=== PATIENT | female | born 1955 | race Caucasian/White ===

== ENCOUNTER → 2017-05-26 | Outpatient (CLI) | payer BC ==
[~2017-05-26] MED LIST: ALBU17IN INH; CALC600T57 PO; CALCCHW8 PO; ENTOCORT PO; ESCI20TA PO; LISI10TA4 PO; MULT1TAB9 PO; POTA10CA32 PO; SING10TA32 PO; VITA500T PO
[2017-05-26 16:35] LABS: BASO % 0.8 % (0.0-1.0); EOS # 0.1 K/mm3 (0.0-0.50); EOS % 2.4 % (0.0-3.0); LARGE UNSTAINED CELL # 0.1 K/mm3 (0.0-0.4); LARGE UNSTAINED CELL % 2.3 % (0.0-4.0); LYMPH # 1.3 K/mm3 (1.5-4.5); LYMPH % 23.4 % (24.0-44.0); MEAN CORPUSCULAR HEMOGLOBIN 32.5 pg (27.0-33.0); MEAN CORPUSCULAR HGB CONC 34.6 g/dl (32.0-36.5); MEAN CORPUSCULAR VOLUME 93.8 fl (80.0-96.0); MONO # 0.4 K/mm3 (0.0-0.8); NEUTROPHILS # 3.3 K/mm3 (1.8-7.7); NEUTROPHILS % 63.1 % (36.0-66.0); PLATELET COUNT, AUTOMATED 174 k/mm3 (150-450); RED CELL DISTRIBUTION WIDTH 13.2 % (11.5-14.5); WHITE BLOOD COUNT 5.2 K/mm3 (4.0-10.0)
[2017-05-26 16:46] LABS: ALBUMIN 3.7 GM/DL (3.2-5.2); ALBUMIN/GLOBULIN RATIO 0.97 (1.00-1.93); ALKALINE PHOSPHATASE 78 U/L (45-117); ALT/SGPT 28 U/L (12-78); AMYLASE 43 U/L (25-115); ANION GAP 8 MEQ/L (8-16); AST/SGOT 16 U/L (15-37); BILIRUBIN,TOTAL 0.5 MG/DL (0.2-1.0); BLOOD UREA NITROGEN 14 MG/DL (7-18); CALCIUM LEVEL 9.8 MG/DL (8.8-10.2); CARBON DIOXIDE LEVEL 31 MEQ/L (21-32); CHLORIDE LEVEL 105 MEQ/L (98-107); CREATININE FOR GFR 0.89 MG/DL (0.55-1.02); GLOMERULAR FILTRATION RATE > 60.0 (>45); GLUCOSE, FASTING 153 MG/DL (80-110); POTASSIUM SERUM 3.3 MEQ/L (3.5-5.1); SODIUM LEVEL 144 MEQ/L (136-145); TOTAL PROTEIN 7.5 GM/DL (6.4-8.2)
[2017-05-26 17:08] LABS: ERYTHROCYTE SEDIMENTATION RATE 44 mm/hr (0-30)
== END ==
LOC: M LAB 15:27
PROVIDERS: ATTEND Physician Assistant Medical
DX: K62.5 Hemorrhage of anus and rectum (principal)

== ENCOUNTER 2017-06-18 09:33 | Outpatient (CLI) | payer BC ==
[~2017-06-18] VITALS: Ht 165.1 cm; Wt 73.0 kg
[2017-06-18] MEDS ORDERED: NS 1,000 ML IV ONE (10:00)
[2017-06-18] MEDS ORDERED: PROPOFOL 200 MG/20 ML VIAL As Ordered ONE ×2 (10:51→10:57)
[2017-06-18] MEDS ORDERED: LIDOCAINE 2% INJ 100 MG/5 ML SDV (FOR ANES.) As Ordered ONE (10:51)
--- NOTE | 2017-06-18 11:14 | ROOR ---
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 Procedure: Pre-Anesthesia Assessment: - The heart rate, respiratory rate, oxygen saturations, blood pressure, adequacy of pulmonary ventilation, and response to care were monitored throughout the procedure. The Colonoscope was introduced through the anus and advanced to 6 cm into the ileum. The colonoscopy was performed without difficulty. The patient tolerated the procedure well. The quality of the bowel preparation was good. Findings: The perianal and digital rectal examinations were normal. The terminal ileum appeared normal. A 8 mm polyp was found in the distal sigmoid colon. The polyp was semi-pedunculated. The polyp was removed with a cold snare. Resection and retrieval were complete. For hemostasis, one hemostatic clip was successfully placed (MR conditional). There was no bleeding at the end of the procedure. The exam was otherwise without abnormality. Biopsies were taken with a cold forceps from the ascending colon, transverse colon, descending colon, sigmoid colon and rectum for evaluation of microscopic colitis. These biopsy specimens were sent to Pathology. Impression: - The perianal examination is normal - The examined portion of the ileum was normal. - One 8 mm polyp in the distal sigmoid colon, removed with a cold snare. Resected and retrieved. Clip (MR conditional) was placed. - Small internal hemorrhoids. - The colon examination was otherwise normal. - Biopsies for surveillance were taken from the ascending colon, transverse colon, descending colon, sigmoid colon and rectum. Recommendation: - Continue present medications. - Telephone endoscopist for pathology results in 2 weeks. Wan Low MD Wan LOW MD 06/18/2017 11:14:05 AM This report has been signed electronically. Number of Addenda: 0 Note Initiated On: 06/18/2017 10:40 AM Estimated Blood Loss: Estimated blood loss: none.
[2017-06-18 11:39] VITALS: BP 2/71
== END 2017-06-18 11:41 | disposition home or self-care (01) ==
LOC: M OPP 09:33
PROVIDERS: ATTEND Internal Medicine Gastroenterology
DX: K92.1 Melena (principal); K52.89 Other specified noninfective gastroenteritis and colitis; R19.7 Diarrhea, unspecified; D12.5 Benign neoplasm of sigmoid colon; K64.8 Other hemorrhoids; I10 Essential (primary) hypertension; R12 Heartburn; M19.90 Unspecified osteoarthritis, unspecified site; M54.9 Dorsalgia, unspecified; M85.80 Other specified disorders of bone density and structure, unspecified site; R42 Dizziness and giddiness; Z78.0 Asymptomatic menopausal state; J45.909 Unspecified asthma, uncomplicated; Z85.3 Personal history of malignant neoplasm of breast; Z92.21 Personal history of antineoplastic chemotherapy; Z92.3 Personal history of irradiation; Z80.0 Family history of malignant neoplasm of digestive organs; Z83.71 Family history of colonic polyps; Z80.8 Family history of malignant neoplasm of other organs or systems; Z80.1 Family history of malignant neoplasm of trachea, bronchus and lung; Z90.11 Acquired absence of right breast and nipple; Z88.8 Allergy status to other drugs, medicaments and biological substances; Z88.1 Allergy status to other antibiotic agents; Z88.2 Allergy status to sulfonamides; Z91.048 Other nonmedicinal substance allergy status; Z88.3 Allergy status to other anti-infective agents; Z91.030 Bee allergy status; Z79.899 Other long term (current) drug therapy

== ENCOUNTER → 2018-03-10 | Outpatient (REF) | payer BC | LOC: M LAB REF 11:51 | DX: K52.832 Lymphocytic colitis (principal) | CPT/HCPCS: 87507 ==

== ENCOUNTER → 2018-03-15 | Outpatient (CLI) | payer BC ==
[2018-03-15 13:17] LABS: HEMATOCRIT 38.7 % (36.0-47.0); HEMOGLOBIN 12.4 g/dl (12.0-15.5); MEAN CORPUSCULAR HEMOGLOBIN 31.7 pg (27.0-33.0); PLATELET COUNT, AUTOMATED 173 10^3/uL (150-450); RED BLOOD COUNT 3.91 10^6/uL (4.00-5.40); RED CELL DISTRIBUTION WIDTH 16.6 % (11.5-14.5)
[2018-03-15 13:23] LABS: ADD MANUAL DIFFER YES; DIFF SLIDE NUMBER 159; POS COUNT POS FLAG; POSITIVE MORPH POS FLAG
[2018-03-15 14:08] LABS: BANDS 2 % (< 11); BASOPHILS 1 % (0-4); EOSINOPHILS 2 % (0-5); LYMPHOCYTES 14 % (16-52); METAMYELOCYTES 2 % (0-0); MONOCYTES 2 % (0-8); MYELOCYTES 2 % (0-0); NEUTROPHILS 75 % (35-75); NUCLEATED RED BLOOD CELL 1 % (0-0); PLATELET ESTIMATE NORMAL (NORMAL)
[2018-03-15 14:15] LABS: ALBUMIN 3.2 GM/DL (3.2-5.2); ALBUMIN/GLOBULIN RATIO 0.91 (1.00-1.93); ALKALINE PHOSPHATASE 57 U/L (45-117); ALT/SGPT 29 U/L (12-78); ANION GAP 12 MEQ/L (8-16); AST/SGOT 9 U/L (7-37); BILIRUBIN,TOTAL 0.4 MG/DL (0.2-1.0); BLOOD UREA NITROGEN 21 MG/DL (7-18); CARBON DIOXIDE LEVEL 25 MEQ/L (21-32); CHLORIDE LEVEL 108 MEQ/L (98-107); CHOLESTEROL LEVEL 209 MG/DL (<200); CHOLESTEROL RISK RATIO 3.215 (<5); CREATININE FOR GFR 0.66 MG/DL (0.55-1.30); GLOMERULAR FILTRATION RATE > 60.0 (>45); GLUCOSE, FASTING 84 MG/DL (70-100); HDL CHOLESTEROL 65 MG/DL (>40); LDL CHOLESTEROL 116.6 MG/DL (<100); NON-HDL-C 144 MG/DL; POTASSIUM SERUM 3.8 MEQ/L (3.5-5.1); SODIUM LEVEL 145 MEQ/L (136-145); TOTAL PROTEIN 6.7 GM/DL (6.4-8.2); TRIGLYCERIDES LEVEL 137 MG/DL (<150)
== END ==
LOC: M WUC 08:49
DX: I10 Essential (primary) hypertension (principal); E78.2 Mixed hyperlipidemia
CPT/HCPCS: 80061

== ENCOUNTER → 2018-03-15 | Outpatient (CLI) | payer BC ==
[2018-03-15 13:17] LABS: HEMATOCRIT 38.6 % (36.0-47.0); HEMOGLOBIN 12.4 g/dl (12.0-15.5); MEAN CORPUSCULAR HEMOGLOBIN 31.9 pg (27.0-33.0); MEAN CORPUSCULAR HGB CONC 32.1 g/dl (32.0-36.5); MEAN CORPUSCULAR VOLUME 99.2 fl (80.0-96.0); PLATELET COUNT, AUTOMATED 173 10^3/uL (150-450); RED BLOOD COUNT 3.89 10^6/uL (4.00-5.40); RED CELL DISTRIBUTION WIDTH 16.7 % (11.5-14.5); WHITE BLOOD COUNT 8.2 10^3/uL (4.0-10.0)
[2018-03-15 13:23] LABS: ADD MANUAL DIFFER YES; DIFF SLIDE NUMBER 158; POS COUNT POS FLAG; POSITIVE MORPH POS FLAG
[2018-03-15 13:52] LABS: ALBUMIN 3.2 GM/DL (3.2-5.2); ALBUMIN/GLOBULIN RATIO 0.91 (1.00-1.93); ALKALINE PHOSPHATASE 56 U/L (45-117); ALT/SGPT 27 U/L (12-78); ANION GAP 13 MEQ/L (8-16); AST/SGOT 8 U/L (7-37); BILIRUBIN,TOTAL 0.3 MG/DL (0.2-1.0); BLOOD UREA NITROGEN 22 MG/DL (7-18); CALCIUM LEVEL 9.1 MG/DL (8.8-10.2); CARBON DIOXIDE LEVEL 25 MEQ/L (21-32); CHLORIDE LEVEL 107 MEQ/L (98-107); CREATININE FOR GFR 0.69 MG/DL (0.55-1.30); GLOMERULAR FILTRATION RATE > 60.0 (>45); GLUCOSE, FASTING 84 MG/DL (70-100); POTASSIUM SERUM 3.9 MEQ/L (3.5-5.1); SODIUM LEVEL 145 MEQ/L (136-145); TOTAL PROTEIN 6.7 GM/DL (6.4-8.2)
[2018-03-15 14:10] LABS: BANDS 2 % (< 11); BASOPHILS 1 % (0-4); EOSINOPHILS 2 % (0-5); LYMPHOCYTES 14 % (16-52); METAMYELOCYTES 2 % (0-0); MONOCYTES 2 % (0-8); MYELOCYTES 2 % (0-0); NEUTROPHILS 75 % (35-75); NUCLEATED RED BLOOD CELL 1 % (0-0); PLATELET ESTIMATE NORMAL (NORMAL)
[2018-03-17 00:06] LABS: CYTOMEGALOVIRUS IgM ANTIBODY <30.0 AU/mL (0.0-29.9); HSV IgM TYPES 1&2 <0.91 Ratio (0.00-0.90)
== END ==
LOC: M WUC 08:43
DX: K52.832 Lymphocytic colitis (principal)
CPT/HCPCS: 80053

== ENCOUNTER 2018-03-25 12:49 | Day surgery (SDC) | payer BC ==
[2018-03-25] MEDS: NS 1,000 ML IV (13:00)
[2018-03-25] MEDS ORDERED: PROPOFOL 200 MG/20 ML VIAL As Ordered ×2 (15:00)
[2018-03-25] MEDS ORDERED: SIMETHICONE 40MG/0.6ML DROPS 30ML As Ordered (15:01)
[2018-03-25] MEDS ORDERED: LIDOCAINE 2% INJ 100 MG/5 ML SYRINGE As Ordered (15:02)
[2018-03-25] MEDS ORDERED: GLUCAGON FOR INJ 1 MG VIAL (J1610) As Ordered (15:05)
== END 2018-03-25 15:40 | disposition home or self-care (01) ==
LOC: M OPP 12:49
DX: K52.9 Noninfective gastroenteritis and colitis, unspecified (principal); I10 Essential (primary) hypertension; K21.9 Gastro-esophageal reflux disease without esophagitis; J45.909 Unspecified asthma, uncomplicated; Z79.899 Other long term (current) drug therapy; Z88.8 Allergy status to other drugs, medicaments and biological substances; Z91.048 Other nonmedicinal substance allergy status; Z91.030 Bee allergy status; Z78.0 Asymptomatic menopausal state; Z85.3 Personal history of malignant neoplasm of breast; Z94.84 Stem cells transplant status; Z90.11 Acquired absence of right breast and nipple; Z92.3 Personal history of irradiation; Z92.21 Personal history of antineoplastic chemotherapy; Z80.1 Family history of malignant neoplasm of trachea, bronchus and lung; Z80.0 Family history of malignant neoplasm of digestive organs; Z80.8 Family history of malignant neoplasm of other organs or systems; Z82.49 Family history of ischemic heart disease and other diseases of the circulatory system
CPT/HCPCS: 45380

== ENCOUNTER 2018-04-27 09:54 | Outpatient (CLI) | payer BC ==
[2018-04-27] MEDS: VEDOLIZUMAB 300 MG in NS 250 ML IV (10:31)
== END 2018-04-27 11:25 | disposition home or self-care (01) ==
LOC: M INFU 09:54
DX: K50.90 Crohn's disease, unspecified, without complications (principal); Z85.3 Personal history of malignant neoplasm of breast; Z90.11 Acquired absence of right breast and nipple; Z94.84 Stem cells transplant status; Z79.899 Other long term (current) drug therapy; Z79.52 Long term (current) use of systemic steroids; Z88.1 Allergy status to other antibiotic agents; Z88.3 Allergy status to other anti-infective agents; Z88.8 Allergy status to other drugs, medicaments and biological substances; Z88.2 Allergy status to sulfonamides; Z91.048 Other nonmedicinal substance allergy status; Z91.030 Bee allergy status
CPT/HCPCS: J3380

== ENCOUNTER 2018-05-11 08:15 | Outpatient (CLI) | payer BC ==
[2018-05-11] MEDS: VEDOLIZUMAB 300 MG in NS 250 ML IV (08:53)
== END 2018-05-11 09:35 | disposition home or self-care (01) ==
LOC: M INFU 08:15
DX: K50.90 Crohn's disease, unspecified, without complications (principal); Z90.11 Acquired absence of right breast and nipple; Z94.84 Stem cells transplant status; Z85.3 Personal history of malignant neoplasm of breast; Z88.1 Allergy status to other antibiotic agents; Z88.3 Allergy status to other anti-infective agents; Z88.8 Allergy status to other drugs, medicaments and biological substances; Z88.2 Allergy status to sulfonamides; Z91.048 Other nonmedicinal substance allergy status; Z91.030 Bee allergy status; Z79.52 Long term (current) use of systemic steroids; Z79.899 Other long term (current) drug therapy
CPT/HCPCS: J3380

== ENCOUNTER 2018-06-08 12:07 | Outpatient (CLI) | payer BC ==
[2018-06-08] MEDS: VEDOLIZUMAB 300 MG in NS 250 ML IV (13:16)
== END 2018-06-08 14:15 | disposition home or self-care (01) ==
LOC: M INFU 12:07
DX: K50.90 Crohn's disease, unspecified, without complications (principal); J45.909 Unspecified asthma, uncomplicated; Z79.899 Other long term (current) drug therapy
CPT/HCPCS: J3380

== ENCOUNTER 2019-03-17 08:35 | Outpatient (CLI) | payer BC ==
[~2019-03-17] VITALS: Ht 165.1 cm; Wt 79.5 kg
[~2019-03-17 08:35] MED LIST changes: +OMEP20CA3 PO; +OMEP40CA2 PO; +PRED10TA2 PO
[2019-03-17] MEDS ORDERED: VEDOLIZUMAB 300 MG in NS 250 ML IV ONE (09:30)
[2019-03-17 09:32] VITALS: BP 112/78
[2019-03-17 10:02] VITALS: BP 112/64
== END 2019-03-17 10:20 | disposition home or self-care (01) ==
LOC: M INFU 08:35
PROVIDERS: ATTEND Internal Medicine Gastroenterology
DX: K50.90 Crohn's disease, unspecified, without complications (principal); J45.909 Unspecified asthma, uncomplicated; Z79.899 Other long term (current) drug therapy

== ENCOUNTER 2019-04-28 09:31 | Outpatient (CLI) | payer BC ==
[~2019-04-28] VITALS: Ht 165.1 cm; Wt 75.2 kg
[~2019-04-28 09:31] MED LIST changes: +MULTCAP PO; -OMEP20CA3 PO; +OMEP20CA4 PO; +VENTAER INH
[2019-04-28 09:35] VITALS: BP 116/80
[2019-04-28] MEDS ORDERED: VEDOLIZUMAB 300 MG in NS 250 ML IV ONE (10:30)
[2019-04-28] MEDS ORDERED: ALLE180T33 PO (10:51)
[2019-04-28 11:10] VITALS: BP 111/60
[2019-04-29] MEDS ORDERED: ENTY1INJ IV (08:20)
== END 2019-04-28 11:10 | disposition home or self-care (01) ==
LOC: M INFU 09:31
PROVIDERS: ATTEND Internal Medicine Gastroenterology
DX: K50.90 Crohn's disease, unspecified, without complications (principal)

== ENCOUNTER 2019-05-06 07:28 | Day surgery (SDC) | payer BC ==
[~2019-05-06] VITALS: Ht 165.1 cm; Wt 74.3 kg
[~2019-05-06 07:28] MED LIST changes: +ALLE180T33 PO; +ENTY1INJ IV; +NS 1,000 ML IV ONE
[2019-05-06] MEDS ORDERED: PROPOFOL 200 MG/20 ML VIAL As Ordered ONE ×2 (08:36→08:37)
[2019-05-06] MEDS ORDERED: LIDOCAINE 2% INJ 100 MG/5 ML SDV (FOR ANES.) As Ordered ONE (08:37)
--- NOTE | 2019-05-06 09:03 | ROOR ---
Patient Name: Lanette Batista Procedure Date: 05/06/2019 8:37 AM Date of : 1955 Age: 64 Room: [facility] Gender: Female Note Status: Finalized Procedure: Colonoscopy Indications: Personal history of Crohn's disease, Disease activity assessment of Crohn's disease of the colon Providers: Wan LOW MD Referring MD: May Ghosh MD Requesting Provider: Medicines: Monitored Anesthesia Care Complications: No immediate complications. Procedure: Pre-Anesthesia Assessment: - The heart rate, respiratory rate, oxygen saturations, blood pressure, adequacy of pulmonary ventilation, and response to care were monitored throughout the procedure. The Colonoscope was introduced through the anus and advanced to 10 cm into the ileum. The colonoscopy was performed without difficulty. The patient tolerated the procedure well. The quality of the bowel preparation was good. Findings: The perianal and digital rectal examinations were normal. The terminal ileum appeared normal. Scattered pseudopolyps were found in the sigmoid colon. This was biopsied with a cold forceps for histology. A scattered area of mildly erythematous mucosa was found in the sigmoid colon. This was biopsied with a cold forceps for histology. The exam was otherwise normal throughout the examined colon. Impression: - The perianal exam and examined portion of the ileum was normal. - A few scattered pseudopolyps in the sigmoid colon. Biopsied. - Mildly erythematous mucosa in the sigmoid colon. Biopsied. - Overall markedly improved visual appearance from previous exam. Recommendation: - Use/Continue Entyvio (vedolizumab) intravenous infusion: 300 mg IV Q 6 weeks. - Return to my office in 6 months. Wan Low MD Wan LOW MD 05/06/2019 9:02:51 AM Electronically signed by Wan LOW MD Number of Addenda: 0 Note Initiated On: 05/06/2019 8:37 AM Estimated Blood Loss: Estimated blood loss: none.
[2019-05-06 09:21] VITALS: BP 134/82
== END 2019-05-06 09:22 | disposition home or self-care (01) ==
LOC: M OPP 07:28
PROVIDERS: ATTEND Internal Medicine Gastroenterology
DX: K50.10 Crohn's disease of large intestine without complications (principal); K63.89 Other specified diseases of intestine; K51.40 Inflammatory polyps of colon without complications; Z87.19 Personal history of other diseases of the digestive system; I10 Essential (primary) hypertension; Z92.21 Personal history of antineoplastic chemotherapy; K52.9 Noninfective gastroenteritis and colitis, unspecified; Z86.19 Personal history of other infectious and parasitic diseases; M19.90 Unspecified osteoarthritis, unspecified site; M54.5 Low back pain; M81.0 Age-related osteoporosis without current pathological fracture; Z78.0 Asymptomatic menopausal state; Z92.3 Personal history of irradiation; R06.83 Snoring; Z85.3 Personal history of malignant neoplasm of breast; Z90.11 Acquired absence of right breast and nipple; Z91.030 Bee allergy status; Z88.8 Allergy status to other drugs, medicaments and biological substances; Z88.2 Allergy status to sulfonamides; Z88.1 Allergy status to other antibiotic agents; Z91.048 Other nonmedicinal substance allergy status; Z79.899 Other long term (current) drug therapy

== ENCOUNTER 2019-06-09 08:50 | Outpatient (CLI) | payer BC ==
[~2019-06-09] VITALS: Ht 165.1 cm; Wt 79.3 kg
[~2019-06-09 08:50] MED LIST changes: -NS 1,000 ML IV ONE
[2019-06-09 08:55] VITALS: BP 127/85
[2019-06-09] MEDS ORDERED: VEDOLIZUMAB 300 MG in NS 250 ML IV ONE (10:00)
[2019-06-09 10:30] VITALS: BP 114/66
== END 2019-06-09 10:30 | disposition home or self-care (01) ==
LOC: M INFU 08:50
PROVIDERS: ATTEND Internal Medicine Gastroenterology
DX: K50.90 Crohn's disease, unspecified, without complications (principal); Z79.899 Other long term (current) drug therapy; Z88.1 Allergy status to other antibiotic agents; Z88.2 Allergy status to sulfonamides; Z88.3 Allergy status to other anti-infective agents; Z88.8 Allergy status to other drugs, medicaments and biological substances; Z91.048 Other nonmedicinal substance allergy status

== ENCOUNTER → 2019-06-23 | Outpatient (CLI) | payer BC ==
[2019-06-23 13:11] LABS: BASO # 0.1 10^3/uL (0.0-0.2); BASO % 0.7 % (0.0-1.0); EOS # 0.3 10^3/uL (0.0-0.5); EOS % 4.4 % (0.0-3.0); HEMATOCRIT 42.5 % (36.0-47.0); HEMOGLOBIN 13.8 g/dl (12.0-15.5); LYMPH # 1.5 10^3/uL (1.5-5.0); LYMPH % 22.2 % (24.0-44.0); MEAN CORPUSCULAR HEMOGLOBIN 31.9 pg (27.0-33.0); MEAN CORPUSCULAR HGB CONC 32.5 g/dl (32.0-36.5); MEAN CORPUSCULAR VOLUME 98.4 fl (80.0-96.0); MONO # 0.6 10^3/uL (0.0-0.8); MONO % 9.3 % (0.0-5.0); NEUTROPHILS # 4.3 10^3/uL (1.5-8.5); NEUTROPHILS % 62.7 % (36.0-66.0); PLATELET COUNT, AUTOMATED 193 10^3/uL (150-450); RED BLOOD COUNT 4.32 10^6/uL (4.00-5.40); WHITE BLOOD COUNT 6.9 10^3/uL (4.0-10.0)
[2019-06-23 13:20] LABS: ALBUMIN 3.7 GM/DL (3.2-5.2); ALT/SGPT 24 U/L (12-78); BILIRUBIN,TOTAL 0.4 MG/DL (0.2-1.0); BLOOD UREA NITROGEN 11 MG/DL (7-18); CALCIUM LEVEL 9.2 MG/DL (8.8-10.2); CARBON DIOXIDE LEVEL 28 MEQ/L (21-32); CHLORIDE LEVEL 112 MEQ/L (98-107); CHOLESTEROL LEVEL 208 MG/DL (<200); CHOLESTEROL RISK RATIO 4.952 (<5); CREATININE FOR GFR 0.81 MG/DL (0.55-1.30); GLOMERULAR FILTRATION RATE > 60.0 (>45); GLUCOSE, FASTING 104 MG/DL (70-100); HDL CHOLESTEROL 42 MG/DL (>40); LDL CHOLESTEROL 98 MG/DL (<100); NON-HDL-C 166 MG/DL; POTASSIUM SERUM 4.3 MEQ/L (3.5-5.1); SODIUM LEVEL 145 MEQ/L (136-145); TOTAL 25(OH) VITAMIN D 20.1 NG/ML (30.0-100.0); TRIGLYCERIDES LEVEL 339 MG/DL (<150)
== END ==
LOC: M WUC 09:15
PROVIDERS: ATTEND Family Medicine
DX: Z00.00 Encounter for general adult medical examination without abnormal findings (principal)

== ENCOUNTER 2020-06-14 10:54 | Outpatient (CLI) | payer MEDICARE, BC ==
[~2020-06-14] VITALS: Ht 165.1 cm; Wt 77.1 kg
[~2020-06-14 10:54] MED LIST changes: +OMEP1CAP73 PO; -OMEP20CA4 PO; -OMEP40CA2 PO; +OMEP40CA97 PO; +VITA-243 PO; -VITA500T PO
[2020-06-14 11:18] VITALS: BP 125/80
[2020-06-14 11:27] VITALS: BP 125/80
[2020-06-14] MEDS ORDERED: VEDOLIZUMAB 300 MG in NS 250 ML IV ONE (11:30)
[2020-06-14 12:15] VITALS: BP 159/83
== END 2020-06-14 12:15 | disposition home or self-care (01) ==
LOC: M INFU 10:54
PROVIDERS: ATTEND Internal Medicine Gastroenterology
DX: K50.90 Crohn's disease, unspecified, without complications (principal); Z88.1 Allergy status to other antibiotic agents; Z88.2 Allergy status to sulfonamides; Z88.8 Allergy status to other drugs, medicaments and biological substances; Z91.030 Bee allergy status

== ENCOUNTER → 2020-06-20 | Outpatient (CLI) | payer MEDICARE, BC ==
[2020-06-20 12:43] LABS: BASO # 0.1 10^3/uL (0.0-0.2); BASO % 0.7 % (0.0-1.0); EOS # 0.2 10^3/uL (0.0-0.5); EOS % 2.8 % (0.0-3.0); HEMOGLOBIN 14.2 g/dl (12.0-15.5); LYMPH # 1.6 10^3/uL (1.5-5.0); LYMPH % 23.8 % (24.0-44.0); MEAN CORPUSCULAR HEMOGLOBIN 32.1 pg (27.0-33.0); MEAN CORPUSCULAR VOLUME 97.3 fl (80.0-96.0); MONO # 0.6 10^3/uL (0.0-0.8); MONO % 9.2 % (0.0-5.0); NEUTROPHILS # 4.3 10^3/uL (1.5-8.5); NEUTROPHILS % 62.8 % (36.0-66.0); PLATELET COUNT, AUTOMATED 206 10^3/uL (150-450); RED BLOOD COUNT 4.42 10^6/uL (4.00-5.40); WHITE BLOOD COUNT 6.8 10^3/uL (4.0-10.0)
[2020-06-20 12:47] LABS: BLOOD UREA NITROGEN 20 MG/DL (7-18); GLUCOSE, FASTING 113 MG/DL (70-100)
[2020-06-20 12:48] LABS: ALBUMIN 3.9 GM/DL (3.2-5.2); ALT/SGPT 29 U/L (12-78); BILIRUBIN,TOTAL 0.5 MG/DL (0.2-1.0); CALCIUM LEVEL 9.5 MG/DL (8.8-10.2); CARBON DIOXIDE LEVEL 26 MEQ/L (21-32); CHLORIDE LEVEL 112 MEQ/L (98-107); CHOLESTEROL LEVEL 241 MG/DL (<200); CHOLESTEROL RISK RATIO 5.355 (<5); GLOMERULAR FILTRATION RATE > 60.0 (>45); HDL CHOLESTEROL 45 MG/DL (>40); LDL CHOLESTEROL 140 MG/DL (<100); NON-HDL-C 196 MG/DL; POTASSIUM SERUM 4.2 MEQ/L (3.5-5.1); SODIUM LEVEL 145 MEQ/L (136-145); TOTAL PROTEIN 7.5 GM/DL (6.4-8.2); TRIGLYCERIDES LEVEL 281 MG/DL (<150)
== END ==
LOC: M WUC 09:18
PROVIDERS: ATTEND Family Medicine
DX: I10 Essential (primary) hypertension (principal)

== ENCOUNTER 2021-03-22 14:12 | Outpatient (CLI) | payer MEDICARE, BC ==
[~2021-03-22] VITALS: Ht 165.1 cm; Wt 77.1 kg
[~2021-03-22 14:12] MED LIST changes: -ESCI20TA PO; +ESCI20TA16 PO; +LISI10TA22 PO; -LISI10TA4 PO; +OMEP40CA4 PO; -OMEP40CA97 PO
[2021-03-22] MEDS ORDERED: VEDOLIZUMAB 300 MG in NS 250 ML IV ONE (14:30)
[2021-03-22 14:48] VITALS: BP 118/78
[2021-03-22 15:24] VITALS: BP 120/82
== END 2021-03-22 15:24 | disposition home or self-care (01) ==
LOC: M INFU 14:12
PROVIDERS: ATTEND Internal Medicine Gastroenterology
DX: K50.90 Crohn's disease, unspecified, without complications (principal)

== ENCOUNTER 2021-05-17 14:40 | Outpatient (CLI) | payer MEDICARE, BC ==
[~2021-05-17] VITALS: Ht 165.1 cm; Wt 77.1 kg
[~2021-05-17 14:40] MED LIST changes: +VEDOLIZUMAB 300 MG in NS 250 ML IV ONE
[2021-05-17 14:53] VITALS: BP 139/82
[2021-05-17 14:58] VITALS: BP 139/82
[2021-05-17 15:35] VITALS: BP 130/87
== END 2021-05-17 15:35 | disposition home or self-care (01) ==
LOC: M INFU 14:40
PROVIDERS: ATTEND Internal Medicine Gastroenterology
DX: K50.90 Crohn's disease, unspecified, without complications (principal); Z88.1 Allergy status to other antibiotic agents; Z88.2 Allergy status to sulfonamides; Z88.8 Allergy status to other drugs, medicaments and biological substances; Z91.030 Bee allergy status

== ENCOUNTER 2021-07-26 14:38 | Outpatient (CLI) | payer MEDICARE, BC ==
[~2021-07-26] VITALS: Ht 165.1 cm; Wt 77.1 kg
[~2021-07-26 14:38] MED LIST changes: -VEDOLIZUMAB 300 MG in NS 250 ML IV ONE
[2021-07-26 15:26] VITALS: BP 125/72
[2021-07-26] MEDS ORDERED: VEDOLIZUMAB 300 MG in NS 250 ML IV ONE (15:30)
[2021-07-26 16:15] VITALS: BP 121/74
== END 2021-07-26 16:15 | disposition home or self-care (01) ==
LOC: M INFU 14:38
PROVIDERS: ATTEND Internal Medicine Gastroenterology
DX: K50.90 Crohn's disease, unspecified, without complications (principal); Z88.1 Allergy status to other antibiotic agents; Z88.2 Allergy status to sulfonamides; Z91.048 Other nonmedicinal substance allergy status

== ENCOUNTER 2022-03-17 10:35 | Outpatient (CLI) | payer MEDICARE, BC ==
[~2022-03-17] VITALS: Ht 165.1 cm; Wt 76.3 kg
[2022-03-17 10:35] VITALS: BP 146/93
[~2022-03-17 10:35] MED LIST changes: +VEDOLIZUMAB 300 MG in NS 250 ML IV ONE
[2022-03-17 11:55] VITALS: BP 146/91
== END 2022-03-17 12:01 | disposition home or self-care (01) ==
LOC: M INFU 10:35
PROVIDERS: ATTEND Internal Medicine Gastroenterology
DX: K50.90 Crohn's disease, unspecified, without complications (principal); Z88.1 Allergy status to other antibiotic agents; Z88.2 Allergy status to sulfonamides; Z91.030 Bee allergy status; Z91.048 Other nonmedicinal substance allergy status

== ENCOUNTER 2022-05-12 09:55 | Outpatient (CLI) | payer MEDICARE, BC ==
[~2022-05-12] VITALS: Ht 165.1 cm; Wt 78.4 kg
[~2022-05-12 09:55] MED LIST changes: -VEDOLIZUMAB 300 MG in NS 250 ML IV ONE
[2022-05-12 10:00] VITALS: BP 151/87
[2022-05-12] MEDS ORDERED: VEDOLIZUMAB 300 MG in NS 250 ML IV ONE (10:00)
[2022-05-12 11:05] VITALS: BP 136/82
== END 2022-05-12 11:05 | disposition home or self-care (01) ==
LOC: M INFU 09:55
PROVIDERS: ATTEND Internal Medicine Gastroenterology
DX: K50.90 Crohn's disease, unspecified, without complications (principal); Z88.2 Allergy status to sulfonamides; Z88.1 Allergy status to other antibiotic agents; Z91.030 Bee allergy status; Z91.048 Other nonmedicinal substance allergy status

== ENCOUNTER 2023-04-13 12:24 | Outpatient (CLI) | payer MEDICARE, BC ==
[~2023-04-13] VITALS: Ht 165.1 cm; Wt 77.1 kg
[~2023-04-13 12:24] MED LIST changes: +MONT-5 PO; -POTA10CA32 PO; +POTA10CA60 PO; -SING10TA32 PO
[2023-04-13] MEDS ORDERED: VEDOLIZUMAB 300 MG in NS 250 ML IV ONE (12:30)
[2023-04-13 12:59] VITALS: BP 127/74; O2SAT 96
[2023-04-13 15:15] VITALS: BP 132/60; O2SAT 99
== END 2023-04-13 14:45 | disposition home or self-care (01) ==
LOC: M INFU 12:24
PROVIDERS: ATTEND Internal Medicine Gastroenterology
DX: K50.90 Crohn's disease, unspecified, without complications (principal); Z88.1 Allergy status to other antibiotic agents; Z88.2 Allergy status to sulfonamides; Z91.030 Bee allergy status; Z91.048 Other nonmedicinal substance allergy status